=== PATIENT | female | born 1990 | race African-American/Black ===

== ENCOUNTER 2018-10-17 16:42 | Emergency (ER) | payer MEDICARE ==
[~2018-10-17] VITALS: Ht 162.6 cm; Wt 79.4 kg
[~2018-10-17 16:42] MED LIST: DEPRESSION MED PO; DICYCLOMINE HCL10 MG PO; PHENTERMINE H37.5 M1 PO; ZOFRAN ODT4 MG PO
--- OUTSIDE RECORDS SUMMARY | 2018-10-17 16:44 | XMS REPORT | Continuity of Care Document ---
Author Author [facility] Interface Address Unknown Phone Unavailable Problems Problem Status Onset Date Classification Date Reported Comments Source Medications Medication Details Route Status Patient Instructions Ordering Provider Order Date Source Allergies, Adverse Reactions, Alerts Substance Category Reaction Severity Reaction type Status Date Reported Comments Source Immunizations Immunization Date Given Site Status Last Updated Comments Source Results Order Name Results Value Reference Range Date Interpretation Comments Source Vital Signs Vital Sign Value Date Comments Source Encounters Location Location Details Encounter Type Encounter Number Reason For Visit Attending Provider ADM Date DC Date Status Source Outpatient [id number] JENNIFER POWELL 07/28/2018 Active [facility] Procedures Procedure Code Date Perfomer Comments Source
[2018-10-17] MEDS ORDERED: MECLIZINE HCL12.5 MG PO (17:24)
[2018-10-17] MEDS ORDERED: KETOROLAC TROME10 MG PO (17:24)
== END 2018-10-17 17:33 | disposition home or self-care (01) ==
LOC: ER 16:42
DX: S06.0X0A Concussion without loss of consciousness, initial encounter (principal); S00.83XA Contusion of other part of head, initial encounter; W22.09XA Striking against other stationary object, initial encounter; Y92.008 Other place in unspecified non-institutional (private) residence as the place of occurrence of the external cause
CPT/HCPCS: 99282